=== PATIENT | male | born 1965 | race Caucasian/White ===

== ENCOUNTER 2018-02-21 07:14 | Inpatient (IN) | payer OTHER, SELFPAY ==
[2018-02-21] VITALS (11 sets, daily range): BP systolic 109–126; BP diastolic 51–72; PULSE 53–60; RESP 11–18; TEMP 36.3–37; O2SAT 97–100; BMI 23.7; BMI 23.6
[2018-02-21] MEDS: 0.9% Normal Saline 1,000 ML 1000 ML IV (07:41)
[2018-02-21] MEDS: Ondansetron 4 MG/2 ML Vial IV (07:41)
[2018-02-21] MEDS: Morphine 4 MG/ML Syringe IV (07:41)
--- NOTE | 2018-02-21 07:43 | ED.VISSUMM ---
- ER Visit Summary Date of Service: 02/21/18 Chief Complaint: Right flank pain History of Present Illness: The patient is a 52 M presenting with right flank pain. Patient states this started yesterday and gradually worsened through the night. He has pain in his right flank that radiates to his right shoulder. He tried Tylenol at home with no improvement. He has pain with deep inspiration and associated nausea. He denies chest pain or shortness of breath. Denies abdominal pain. Denies urinary complaints. Denies PE/DVT risk factors. Denies injury. Physical Examination: Vitals are stable. Patient is afebrile. Alert no acute distress. HEENT exam is unremarkable. Neck is supple. Lungs are clear and equal bilaterally. Heart is regular rate and rhythm. Abdomen is soft nontender nondistended. No guarding or rebound. Back: Right CVA tenderness Extremities are unremarkable. Skin is warm and dry. No focal neurologic deficit. Remainder of exam is unremarkable. Emergency Department Course and Treatment: Patient is given morphine, Zofran IV. EKG is sinus bradycardia rate of 53. CBC is normal except for white count 11.1. Chemistries unremarkable. Troponin is negative. Urinalysis unremarkable. CTA chest, abdomen pelvis was obtained and shows multiple intraluminal filling defects in the right lower lobe pulmonary arterial branches and smaller intraluminal filling defects seen in the left upper lobe pulmonary arterial branches. Right basilar infiltrate and small right pleural effusion. He was given Lovenox. Discussed with Dr. Cruz for admission. Disposition: Admission Impression: Multiple PE This note was generated with [employer] dictation software. It may contain incorrect words, spelling, and punctuation that were not noted in review of the chart prior to signing ED Disposition - Plan for ED Patient: Chief Complaint: Shortness of Breath Referrals: Connie Black MD [STAFF PHYSICIAN] -
[2018-02-21 08:01] LABS: Absolute Lymphocyte Count 1.77 X10^3/ul (0.83-4.51); Absolute Neutrophil Count 8.4 X10^3/uL (2.0-7.7); Basophil# 0.02 X10^3/uL; Basophil% 0.2 % (0-1); Eosinophil# 0.08 X10^3/uL; Eosinophils% 0.7 % (0-5); Hematocrit 38.4 % (40-54); Hemoglobin 12.6 g/dl (13.0-16.5); Lymphocyte # 1.77 X10^3/ul (4.0); Lymphocyte % 15.9 % (19-41); Mean Corp Hgb Conc 32.8 g/gl (32-36); Mean Corpuscular Hgb 30.5 pg (27.0-32.0); Mean Platelet Vol. 9.5 fl (6.2-12.0); Monocyte# 0.87 X10^3/uL; Monocyte% 7.8 % (0-10); Neutrophil # 8.35 X10^3/uL (2.7-7.7); Neutrophil % 75.3 % (47-70); POSITIVE COUNT NO; POSITIVE DIFFERENTIAL NO; POSITIVE MORPHOLOGY NO; Platelet Count 215 K/mm3 (150-450); RBC Distribution Width CV 12.2 % (11.6-14.6); RBC Distribution Width SD 41.6 fl (35.1-43.9); Red Blood Count 4.13 M/mm3 (4.6-6.2); White Blood Count 11.1 K/mm3 (4.4-11.0)
[2018-02-21 08:15] LABS: Anion Gap 9 (5-15); BUN 13 mg/dL (7-18); BUN/Creat Ratio 13.5 RATIO (10-20); Calcium,Total 8.8 mg/dL (8.5-10.1); Chloride 104 mmol/L (98-107); Creatinine, Serum 0.96 mg/dL (0.70-1.30); EST Glomerular Filtration Rate 86 mL/min (>60); Est Glom Filt Rate - Afr Amer 104 mL/min (>60); Estimated Creatinine Clearance 99.41 ml/min; Glucose 111 mg/dL (74-106); Potassium 4.1 mmol/L (3.5-5.1); Sodium Level 143 mmol/L (136-145)
[2018-02-21 09:24] LABS: Bacteria 0 SEEN /hpf (None Seen); Mucous, Urine 0 SEEN /hpf (<or=2+); Red Blood Cells-Urine 0 SEEN /hpf (0-5); Squamous Epithelial Cells - UA 0 SEEN /hpf (0-5); White Blood Cells 0 SEEN /hpf (0-5)
[2018-02-21 09:27] LABS: Color, Urine Yellow (Yellow); Glucose, Dipstick Normal (Normal); Ketone-Dipstick Negative (Negative); Leukocyte Esterase-Dipstick Negative /ul (Negative); Nitrite-Dipstick Negative (Negative); Occult Blood-Urine Negative /ul (Negative); Protein-Dipstick Negative (Negative); Urine Bilirubin Dipstick Negative (Negative); Urine Clarity Clear (Clear); Urine Urobilinogen Normal (Normal)
--- NOTE | 2018-02-21 10:29 | NURSING ---
[facility] notified patient may transfer to PCU.
[2018-02-21] MEDS: Enoxaparin 80 MG/0.8 ML Syringe SC ×2 (10:35→22:33)
--- NOTE | 2018-02-21 10:45 | PCM.HP.STD ---
Problem List (1) Acute pulmonary embolus Status: Acute Qualifiers: Acute cor pulmonale presence: without acute cor pulmonale (2) Pulmonary infarct Status: Acute History of Present Illness Date of Admission: 02/21/18 Chief Complaint: Right-sided chest pain The patient is a 52 year old M in relatively good health with no chronic medical problems who presents with right-sided chest pain. Patient symptoms started a day prior to coming in the evening. Patient describes the pain as dull ache which worsened as time progressed. He apparently could not lay on his right side in view of the intensity of the pain patient also reports having taken difficulty with breathing upon taking a deep breath.. In view of the persistent nature of his symptoms patient elected to present to the emergency department where imaging studies obtained demonstrated Multiple intraluminal filling defects in the right lower lobe pulmonary arterial branches and smaller intraluminal filling defects seen in the left upper lobe pulmonary arterial branches. Right basilar infiltrate and small right pleural effusion. Patient was started on Lovenox admitted to a monitored bed for further management Past Medical History Allergies No Known Allergies Allergy (Verified 02/21/18 07:17) Home Medications: Ambulatory Orders Medication Instructions Recorded NK [NK] 02/21/18 Smoking Status: Never smoker - *Family History Maternal History Items: Cancer - Mother of breast cancer with metastases to the bone Paternal History Items: COPD Review of Systems Constitutional: Denies: Anorexia, Chills, Fever, Night Sweats, Weight Change HEENT: Denies: Head Aches, Sinus Congestion, Sinus Drainage Cardiovascular: Reports: Chest Pain. Denies: Orthopnea, Palpitations Respiratory: Reports: Pleuritic Pain, Shortness of Breath Gastrointestinal: Denies: Abdominal Pain, Hematemesis, Hematochezia, Nausea, Melena, Vomiting Genitourinary: Denies: Dysuria, Frequency, Hematuria, Urgency Musculoskeletal: Denies: Joint Pain, Joint Tenderness Skin: Denies: Rash Neurological: Denies: Focal weakness, Numbness, Tingling Psychiatric: Denies: Homicidal Ideations, Suicidal Ideations Hematologic/ Lymphatic: Denies: Easy Bruising, Easy Bleeding VTE Information - Inpt Only VTE Present on Admission: Yes Patient Problems: Active and Suspected Problems Acute pulmonary embolus (Acute) Pulmonary infarct (Acute) Objective: GENERAL: Patient appears to be in some discomfort HEENT: Clear conjunctiva, moist oral mucosa NECK; supple, normal thyroid, no distended JVD. CHEST: Diminished to auscultation bilaterally, HEART: Regular S1 S2, no audible murmurs ABDOMEN: soft, non-tender, normoactive bowel sounds, RECTAL: deferred EXTREMITIES: No edema, no clubbing, no cyanosis. K 12 PRINCIPAL: Awake; no lateralizing signs. SKIN: No Rash - Physical Exam Vital Signs Temp Pulse Resp BP Pulse Ox 97.3 F L 55 L 11 L 119/69 99 02/21/18 07:15 02/21/18 10:31 02/21/18 10:31 02/21/18 10:31 02/21/18 10:31 Oxygen Delivery Method Room Air Weight: 81.7 kg Body Mass Index (BMI) 23.7 Laboratory Tests Past 24 Hrs 02/21/18 02/21/18 02/21/18 07:50 07:50 09:10 WBC 11.1 H RBC 4.13 L Hgb 12.6 L Hct 38.4 L MCV 93.0 MCH 30.5 MCHC 32.8 RDW 12.2 RDW Differential 41.6 Plt Count 215 MPV 9.5 Immature Gran % (Auto) 0.100 Neut % (Auto) 75.3 H Lymph % (Auto) 15.9 L Nelson % (Auto) 7.8 Eos % (Auto) 0.7 Baso % (Auto) 0.2 Absolute Neuts (auto) 8.4 H Absolute Lymphs (auto) 1.77 Total Counted Not Reportable Sodium 143 Potassium 4.1 Chloride 104 Carbon Dioxide 30.0 Anion Gap 9 BUN 13 Creatinine 0.96 Estim Creat Clear Calc 99.41 Est GFR (MDRD) Af Amer 104 Est GFR (MDRD) Non-Af 86 BUN/Creatinine Ratio 13.5 Glucose 111 H Calcium 8.8 Troponin I < 0.015 Urine Color Yellow Urine Clarity Clear Urine pH 8.0 Ur Specific [place] 1.010 Urine Protein Negative Urine Glucose (UA) Normal Urine Ketones Negative Urine Occult Blood Negative Urine Nitrite Negative Urine Bilirubin Negative Urine Urobilinogen Normal Ur Leukocyte Esterase Negative Urine RBC 0 SEEN Urine WBC 0 SEEN Ur Squamous Epith Cells 0 SEEN Urine Bacteria 0 SEEN Urine Mucus 0 SEEN Assessment/Plan All Active Problems Acute pulmonary embolus (Acute) Pulmonary infarct (Acute) Patient is a 52-year-old gentleman presented with right-sided pleuritic chest pain found to have pulmonary embolism on CT 1. Acute unprovoked pulmonary embolism patient has been admitted to a monitored bed was started on Lovenox, supplemental oxygen pain medications and echo ordered for subsequent evaluation. With the patient's PE being unprovoked did discuss with patient regarding treatment which has to continue indefinitely. I did discuss with the patient did be not to pursue hypercoagulable workup since management would not be altered 2. Acute pulmonary infarct secondary to patient's pulmonary embolism management as discussed above Code Visit Inpatient E&M: 16784 Init Hosp L2 OBSV E&M: 96877 Initial observation care L3
[2018-02-21 12:13] LABS: BNP,B-Type NATRIURETIC PEPTIDE 27.1 pg/mL (0-100)
[2018-02-21] MEDS: oxyCODONE 5 MG Tablet PO ×3 (14:01→22:32)
--- NOTE | 2018-02-21 14:28 | CASEMGMT ---
Face to Face with patient for initial transition planning/care coordination assessment. JUSTICE THORNTON introduced self and role at [facility], pt voices understanding and consents to assessment at this time. Pt is sitting up in bed in no distress at this time. Pt is A/O x4 at this time and answers all questions appropriately at this time. Care providers, pharmacy, and demographics verified. See attached link. Pt voices no further concerns/needs at this time. Advised pt to ask for CM if any further questions/concerns/needs arise, voices understanding. CM to follow for anti-coagulation needs. PLAN: [place] JUSTICE THORNTON
[2018-02-21] MEDS: Acetaminophen 325 MG Tablet 650 MG PO (16:42)
[2018-02-22] VITALS (12 sets, daily range): BP systolic 111–131; BP diastolic 55–63; PULSE 60–72; RESP 16; TEMP 37.1–38.1; O2SAT 95–99
[2018-02-22] MEDS: Morphine 2 MG/ML Syringe IV ×2 (00:44→06:52)
[2018-02-22] MEDS: Zolpidem Tartrate 5 MG Tablet PO ×2 (00:45→22:00)
[2018-02-22] MEDS: 0.9% NaCl Peripheral Flush Adult/Peds IV ×3 (00:45→22:02)
[2018-02-22 06:39] LABS: Anion Gap 6 (5-15); BUN 9 mg/dL (7-18); Calcium,Total 8.3 mg/dL (8.5-10.1); Chloride 105 mmol/L (98-107); Creatinine, Serum 0.82 mg/dL (0.70-1.30); EST Glomerular Filtration Rate 104 mL/min (>60); Est Glom Filt Rate - Afr Amer 126 mL/min (>60); Estimated Creatinine Clearance 116.39 ml/min; Glucose 101 mg/dL (74-106); Potassium 3.9 mmol/L (3.5-5.1); Sodium Level 140 mmol/L (136-145)
--- NOTE | 2018-02-22 08:30 | PCM.PN.HOSP ---
Patient Problems: Active and Suspected Problems Acute pulmonary embolus (Acute) Pulmonary infarct (Acute) Subjective: Patient seen still complains of significant right-sided pleuritic chest pain radiating to his right shoulder dose of Toradol was given. Echo obtained the day prior demonstrates the possibility of blood clots in patient's IVC Objective: GENERAL: Patient appears to be in some discomfort HEENT: Clear conjunctiva, moist oral mucosa NECK; supple, normal thyroid, no distended JVD. CHEST: Diminished to auscultation bilaterally, HEART: Regular S1 S2, no audible murmurs ABDOMEN: soft, non-tender, normoactive bowel sounds, RECTAL: deferred EXTREMITIES: No edema, no clubbing, no cyanosis. PARISH WORKER: Awake; no lateralizing signs. SKIN: No Rash Vitals/I&O's: Vital Signs Temp Pulse Resp BP Pulse Ox 99.0 F 65 16 111/59 L 95 02/22/18 06:48 02/22/18 07:23 02/22/18 06:48 02/22/18 06:48 02/22/18 07:40 Oxygen Delivery Method Room Air Weight: 81.3 kg Body Mass Index (BMI) 23.6 Intake and Output for Last 24 Hours 02/20/18 02/21/18 02/22/18 23:59 23:59 23:59 Intake Total 240 / 240 360 / 360 Balance 240 / 240 360 / 360 Laboratory Results 02/21/18 12:00: Troponin I < 0.015 02/21/18 15:00: Troponin I < 0.015 02/22/18 06:00: Sodium 140, Potassium 3.9, Chloride 105, Carbon Dioxide 29.0, Anion Gap 6, BUN 9, Creatinine 0.82, Estim Creat Clear Calc 116.39, Est GFR (MDRD) Af Amer 126, Est GFR (MDRD) Non-Af 104, BUN/Creatinine Ratio 11.0, Glucose 101, Calcium 8.3 L Current Medications Acetaminophen (Tylenol) 650 mg PO Q6H PRN PRN PRN Reason: Mild Pain (scale 0-3)/T>100.7 Last Admin: 02/21/18 16:42 Dose: 650 mg Al Hydroxide/Mg Hydroxide (Mylanta Ii) 30 ml PO Q6H PRN PRN PRN Reason: Gastric Burning Bisacodyl (Dulcolax) 10 mg PO DAILY PRN PRN PRN Reason: Constipation Docusate Sodium (Colace) 200 mg PO BID PRN PRN PRN Reason: Constipation Enoxaparin Sodium (Lovenox) 80 mg 1 mg/kg (80 mg) SC Q12 EVER Last Admin: 02/21/18 22:33 Dose: 80 mg Ketorolac Tromethamine (Toradol) 15 mg IV X1 ONE Stop: 02/22/18 08:29 Magnesium Hydroxide (Milk Of Magnesia) 30 ml PO DAILY PRN PRN Reason: Constipation Morphine Sulfate () 2 - 4 mg IV Q3H PRN PRN PRN Reason: Severe Pain (pain scale 6-10) Last Admin: 02/22/18 06:52 Dose: 2 mg Morphine Sulfate () 2 - 4 mg IV Q3H PRN PRN PRN Reason: Severe Pain (pain scale 6-10) Ondansetron HCl (Zofran) 4 mg IV Q8H PRN PRN PRN Reason: Nausea Oxycodone HCl (Oxyir) 5 mg PO Q4H PRN PRN PRN Reason: Moderate Pain (pain scale 4-5) Last Admin: 02/21/18 22:32 Dose: 5 mg Sodium Chloride () 5 - 30 ml IV UD PRN PRN Reason: SALINE FLUSH Last Admin: 02/22/18 00:45 Dose: 10 ml Zolpidem Tartrate (Ambien (Generic)) 5 mg PO QHS PRN PRN PRN Reason: INSOMNIA Last Admin: 02/22/18 00:45 Dose: 5 mg Medical Necessity - Tobacco Use Smoking Status: Never smoker Assessment/Plan All Active Problems Acute pulmonary embolus (Acute) Pulmonary infarct (Acute) Patient is a 52-year-old gentleman presented with right-sided pleuritic chest pain found to have pulmonary embolism on CT 1. Acute unprovoked pulmonary embolism patient has been admitted to a monitored bed was started on Lovenox, supplemental oxygen pain medications and echo ordered for subsequent evaluation. With the patient's PE being unprovoked did discuss with patient regarding treatment which has to continue indefinitely. I did discuss with the patient the decision not to pursue hypercoagulable workup since management would not be altered. Echo obtained on 02/21/2018 demonstrates the possibility of blood clots in patient's IVC RVSP was 28 mmHg 2. Acute pulmonary infarct secondary to patient's pulmonary embolism management as discussed above Clinical Impression(s) from Imaging Studies Abdomen/Pelvis CT 02/21/18 07:30 IMPRESSION: Focal right lower lobe infiltrate with small right pleural effusion. Basilar atelectasis at the left lung base. Electronically Signed: Von Goodrich MD at 9:31 EDT Tel [phone], Service support , Chest CTA 02/21/18 07:30 IMPRESSION: Multiple intraluminal filling defects in the right lower lobe pulmonary arterial branches and smaller intraluminal filling defects seen in the left upper lobe pulmonary arterial branches. Right basilar infiltrate and small right pleural effusion. Electronically Signed: Von Goodrich MD at 9:33 EDT Tel [phone], Service support , Active Medications Acetaminophen (Tylenol) 650 mg PO Q6H PRN PRN PRN Reason: Mild Pain (scale 0-3)/T>100.7 Last Admin: 02/21/18 16:42 Dose: 650 mg Al Hydroxide/Mg Hydroxide (Mylanta Ii) 30 ml PO Q6H PRN PRN PRN Reason: Gastric Burning Bisacodyl (Dulcolax) 10 mg PO DAILY PRN PRN PRN Reason: Constipation Docusate Sodium (Colace) 200 mg PO BID PRN PRN PRN Reason: Constipation Enoxaparin Sodium (Lovenox) 80 mg 1 mg/kg (80 mg) SC Q12 EVER Last Admin: 02/21/18 22:33 Dose: 80 mg Ketorolac Tromethamine (Toradol) 15 mg IV X1 ONE Stop: 02/22/18 08:29 Magnesium Hydroxide (Milk Of Magnesia) 30 ml PO DAILY PRN PRN Reason: Constipation Morphine Sulfate () 2 - 4 mg IV Q3H PRN PRN PRN Reason: Severe Pain (pain scale 6-10) Last Admin: 02/22/18 06:52 Dose: 2 mg Morphine Sulfate () 2 - 4 mg IV Q3H PRN PRN PRN Reason: Severe Pain (pain scale 6-10) Ondansetron HCl (Zofran) 4 mg IV Q8H PRN PRN PRN Reason: Nausea Oxycodone HCl (Oxyir) 5 mg PO Q4H PRN PRN PRN Reason: Moderate Pain (pain scale 4-5) Last Admin: 02/21/18 22:32 Dose: 5 mg Sodium Chloride () 5 - 30 ml IV UD PRN PRN Reason: SALINE FLUSH Last Admin: 02/22/18 00:45 Dose: 10 ml Zolpidem Tartrate (Ambien (Generic)) 5 mg PO QHS PRN PRN PRN Reason: INSOMNIA Last Admin: 02/22/18 00:45 Dose: 5 mg Code Visit OBSV E&M: 45753 Subsequent observation care L3
[2018-02-22] MEDS: Ketorolac 15 MG/ML Vial IV (08:52)
[2018-02-22] MEDS: Enoxaparin 80 MG/0.8 ML Syringe SC ×2 (10:54→22:01)
[2018-02-22] MEDS: Acetaminophen 325 MG Tablet 650 MG PO (18:01)
[2018-02-22] MEDS: Ketorolac 10 MG Tablet PO (22:00)
[2018-02-23 03:00] VITALS: PULSE 62
[2018-02-23 03:40] VITALS: BP 118/59; PULSE 65; RESP 16; TEMP 37.2; O2SAT 96
--- NOTE | 2018-02-23 05:55 | NURSING ---
All charting completed by SN Heena reviewed by this RN. This RN agrees with documentation - 02/23
[2018-02-23 06:33] LABS: Hematocrit 34.3 % (40-54); Hemoglobin 11.2 g/dl (13.0-16.5); Mean Corp Hgb Conc 32.7 g/gl (32-36); Mean Corpuscular Hgb 30.4 pg (27.0-32.0); Mean Platelet Vol. 9.1 fl (6.2-12.0); Platelet Count 200 K/mm3 (150-450); RBC Distribution Width CV 12.3 % (11.6-14.6); RBC Distribution Width SD 41.7 fl (35.1-43.9); Red Blood Count 3.69 M/mm3 (4.6-6.2); White Blood Count 7.1 K/mm3 (4.4-11.0)
[2018-02-23 06:34] LABS: Scan Indicated on CBC? Y/N NO
[2018-02-23 06:51] LABS: Anion Gap 4 (5-15); BUN 10 mg/dL (7-18); BUN/Creat Ratio 12.4 RATIO (10-20); Calcium,Total 8.3 mg/dL (8.5-10.1); Chloride 105 mmol/L (98-107); Creatinine, Serum 0.81 mg/dL (0.70-1.30); EST Glomerular Filtration Rate 106 mL/min (>60); Est Glom Filt Rate - Afr Amer 128 mL/min (>60); Estimated Creatinine Clearance 117.82 ml/min; Glucose 101 mg/dL (74-106); Magnesium 2.2 mg/dL (1.6-2.6); Potassium 3.9 mmol/L (3.5-5.1); Sodium Level 139 mmol/L (136-145)
[2018-02-23 06:56] VITALS: PULSE 61
[2018-02-23 09:40] VITALS: BP 121/74; PULSE 65; RESP 16; TEMP 36.7; O2SAT 97
--- NOTE | 2018-02-23 09:43 | PCM.DC ---
- Discharge Diagnoses Current Active Problems: Current Active and Chronic Problems Acute pulmonary embolus (Acute) Pulmonary infarct (Acute) You will use the following diet at home:: No restrictions Discharge Activity: May Not Drive Allergies/Adverse Reactions: Allergies No Known Allergies Allergy (Verified 02/21/18 07:17) Medications to take at Discharge Oxycodone [Oxyir] 5 mg PO Q4H PRN PRN 5 Days #14 tab 02/23/18 Pantoprazole Sodium [Protonix] 40 mg PO DAILY #30 tab 02/23/18 Rivaroxaban [Xarelto] 1 tab PO UD #51 tab 02/23/18 The following prescriptions were given: Oxycodone [Oxyir] 5 mg PO Q4H PRN PRN 5 Days #14 tab PRN Reason: Moderate Pain (pain scale 4-5) Pantoprazole Sodium [Protonix] 40 mg PO DAILY #30 tab Rivaroxaban [Xarelto] 1 tab PO UD #51 tab Primary Care Physician: Connie Black MD [STAFF PHYSICIAN] - Test Results: Test results from this visit will be discussed in further detail at your follow-up appointment, if applicable. Proposed Discharge Date: 02/23/18
--- NOTE | 2018-02-23 09:44 | PCM.DC.SUM ---
Discharge Date and Diagnosis - Problem List Patient Problems: Active and Suspected Problems Acute pulmonary embolus (Acute) Pulmonary infarct (Acute) Date of Admission: 02/21/18 Date of Discharge: 02/23/18 - Primary Discharge Diagnosis Active and Suspected Problems Acute pulmonary embolus (Acute) Pulmonary infarct (Acute) Hospital Course and Treatment Summary of Care Provided: Patient is a 52-year-old gentleman presented with right-sided pleuritic chest pain found to have pulmonary embolism on CT 1. Acute unprovoked pulmonary embolism patient has been admitted to a monitored bed was started on Lovenox, supplemental oxygen pain medications and echo ordered for subsequent evaluation. With the patient's PE being unprovoked did discuss with patient regarding treatment which has to continue indefinitely. I did discuss with the patient the decision not to pursue hypercoagulable workup since management would not be altered. Echo obtained on 02/21/2018 demonstrates the possibility of blood clots in patient's IVC RVSP was 28 mmHg. Patient was discharged home on Eliquis and instructed to follow-up with his primary care physician Dr. Case for subsequent care 2. Acute pulmonary infarct secondary to patient's pulmonary embolism management as discussed above Discharge Diet: No Restrictions Discharge Activity: May Not Drive Home Medications: Medications to take at Discharge Apixaban [Eliquis] 5 mg PO BID #60 tab 02/23/18 Apixaban [Eliquis] 10 mg PO BID #28 tab 02/23/18 Oxycodone [Oxyir] 5 mg PO Q4H PRN PRN 5 Days #14 tablet 02/23/18 Pantoprazole Sodium [Protonix] 40 mg PO DAILY #30 tab 02/23/18 Following Prescrptions Were Given to Patient: Apixaban [Eliquis] 10 mg PO BID #28 tab Apixaban [Eliquis] 5 mg PO BID #60 tab Oxycodone [Oxyir] 5 mg PO Q4H PRN PRN 5 Days #14 tablet PRN Reason: Moderate Pain (pain scale 4-5) Pantoprazole Sodium [Protonix] 40 mg PO DAILY #30 tab Primary Care Physician: Connie Black MD [STAFF PHYSICIAN] - Disposition: Home Minutes spent on discharge:: 35 Patient Condition:: Stable Medical Necessity - Tobacco Use Smoking Status: Never smoker Meaningful Use Info Meaningful Use Diagnoses (Choose all that apply): VTE - VTE Anticoag overlap given w/in hospital stay or rx'd at dc?: No Pt receive overlap for 5 days?: No Reason overlap not ordered, prescribed, or given for 5 days: Treatment Not Indicated Code Visit Inpatient E&M: 04771 Disch Hosp
--- NOTE | 2018-02-23 10:32 | PCM.DC ---
- Discharge Diagnoses Current Active Problems: Current Active and Chronic Problems Acute pulmonary embolus (Acute) Pulmonary infarct (Acute) Discharge Activity: May Not Drive Allergies/Adverse Reactions: Allergies No Known Allergies Allergy (Verified 02/21/18 07:17) Medications to take at Discharge Apixaban [Eliquis] 5 mg PO BID #60 tab 02/23/18 Apixaban [Eliquis] 10 mg PO BID #28 tab 02/23/18 Oxycodone [Oxyir] 5 mg PO Q4H PRN PRN 5 Days #14 tablet 02/23/18 Pantoprazole Sodium [Protonix] 40 mg PO DAILY #30 tab 02/23/18 The following prescriptions were given: Apixaban [Eliquis] 10 mg PO BID #28 tab Apixaban [Eliquis] 5 mg PO BID #60 tab Oxycodone [Oxyir] 5 mg PO Q4H PRN PRN 5 Days #14 tablet PRN Reason: Moderate Pain (pain scale 4-5) Pantoprazole Sodium [Protonix] 40 mg PO DAILY #30 tab Primary Care Physician: Connie Black MD [STAFF PHYSICIAN] - Test Results: Test results from this visit will be discussed in further detail at your follow-up appointment, if applicable. Proposed Discharge Date: 02/23/18
[2018-02-23] MEDS: Enoxaparin 80 MG/0.8 ML Syringe SC (10:45)
[2018-02-23 11:10] VITALS: PULSE 69
--- NOTE | 2018-02-23 11:29 | CASEMGMT ---
Per Dr. Cruz, pt to be sent home on [employer] and med e-scribed to [facility] previously. Call to [facility] and per tech, pt's co-pay for 1st script is $125 and they are unable to run 2nd script until 1st is filled/paid for. Pt updated at this time and provided $10 co-pay card with instructions, voices understanding. Pt voices no further questions/concerns/needs at this time. Awaiting dispo. Dewey RENDON CM
[2018-02-23 12:02] VITALS: O2SAT 96
== END 2018-02-23 12:17 | disposition home or self-care (01) | DRG 176 ==
LOC: ED 08:11 → PCU 10:45
PROVIDERS: Admitting Provider Internal Medicine; Emergency Provider Emergency Medicine; Family Provider Internal Medicine; PCP Internal Medicine; Visit Provider Internal Medicine
DX: I26.99 Other pulmonary embolism without acute cor pulmonale (principal)
CPT/HCPCS: 36415; 71275; 74176; 80048; 81001; 83735; 83880; 84484; 85025; 85027; 93005; 93306; 99251; 99285; J7030; Q9967; A4216; G0463; J2405

== ENCOUNTER 2018-08-10 14:37 | Emergency (ER) | payer OTHER, SELFPAY ==
[2018-08-10 14:39] VITALS: BP 147/73; PULSE 76; RESP 16; TEMP 36.4; O2SAT 99; BMI 23.7
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
[2018-08-10 16:10] VITALS: RESP 18
== END 2018-08-10 16:10 | disposition home or self-care (01) ==
LOC: ED 15:41
PROVIDERS: Emergency Provider Emergency Medicine; Family Provider Internal Medicine; PCP Internal Medicine
DX: S60.221A Contusion of right hand, initial encounter (principal); V89.2XXA Person injured in unspecified motor-vehicle accident, traffic, initial encounter; Y93.89 Activity, other specified; Y92.9 Unspecified place or not applicable; K21.9 Gastro-esophageal reflux disease without esophagitis
CPT/HCPCS: 73130; 99282

== ENCOUNTER 2019-05-07 06:00 | Emergency (ER) | payer OTHER, SELFPAY ==
[2019-05-07 06:00] VITALS: BP 127/61; PULSE 70; RESP 17; TEMP 37; O2SAT 96; BMI 24.2
--- NOTE | 2019-05-07 06:22 | CT_ITS ---
STUDY: CT ABDOMEN AND PELVIS WITH CONTRAST REASON FOR EXAM: Male, 53 years old. 2 day history of fever and bloody stool. RADIATION DOSAGE (If Supplied By Facility): CTDIvol = ( 12.71 ) mGy, DLP = ( 767.09 ) mGycm TECHNIQUE: Transaxial images were obtained from the dome of the diaphragm to the symphysis pubis with oral contrast. IV/Oral Isovue 300 100 was administered. Sagittal and coronal images were reconstructed. Individualized dose optimization techniques were used for this CT. COMPARISON: Comparison is made with prior study dated February 21, 2018. FINDINGS: Minimal degree of dependent bibasilar atelectasis. The visualized portions of the heart are within normal limits. 5 mm cyst in the anterior peripheral aspect of the right lobe of the liver. A similar appearing 5 mm cyst is seen in the left lobe of the liver. Normal gallbladder and extrahepatic biliary system. Normal spleen. Normal pancreas. Normal bilateral adrenal glands. 2.8 cm cyst in the anterior superior aspect of the right kidney. This is unchanged. Normal left kidney. There is a small hiatal hernia. Normal small intestine. There are scattered colonic diverticula consistent with diverticulosis. Moderate amount of fecal material is seen in the colon. The appendix is visualized and appears normal. Normal abdominal aorta. Normal inferior vena cava. Normal retroperitoneum. Normal urinary bladder. Minimal amount of free fluid is seen in the posterior right pelvis. Normal abdominal wall. Disc space narrowing and disc degeneration at the L5-S1 level. Mild degree of disc space narrowing at the L4-L5 level. CT/Abdomen/Pelvis WITH Contrast IMPRESSION: Moderate amount of fecal material is seen throughout the colon. Scattered sigmoid diverticula. Small amount of free fluid in the posterior right pelvis. Stable right renal cyst and small hepatic cysts. Electronically Signed: Von Goodrich, at 8:31 EDT , Service support ,
--- NOTE | 2019-05-07 06:23 | RAD_ITS ---
STUDY: X-RAY CHEST REASON FOR EXAM: Male, 53 years old. Fever, weakness and nausea. Body aches. TECHNIQUE: PA and lateral views of the chest. COMPARISON: None. FINDINGS: EKG electrodes are seen. The lungs are clear and expanded. There is no demonstrated pleural abnormality. Normal size heart. Normal mediastinum and chad. Normal visualized pulmonary arteries. Normal visualized aortic arch and descending thoracic aorta. Normal visualized thoracic spine. Normal visualized ribs, clavicles, and shoulders. There is no demonstrated abnormality of the visualized soft tissue structures of the upper abdomen. RAD/Chest PA and Lateral IMPRESSION: Normal x-ray examination of the chest. Electronically Signed: Von Goodrich, at 8:27 EDT , Service support ,
--- NOTE | 2019-05-07 06:23 | ED.VIS.GEN ---
History of Present Illness Chief Complaint: General Illness Narrative: Patient is a 53-year-old male who presents with multiple complaints. He initially became ill on Tuesday, 2 days ago. He reports generalized malaise, fever, headache and chills. Yesterday he had 2 episodes of bloody stool. Initially this was some pink discoloration however than in the evening he had another episode with darker blood and small clots as well as dark-colored stool. He has not had a bowel movement since 5:00 PM yesterday, about 13 to 14 hours before presentation here. However he woke up this morning with body aches across his back and arms. He denies any abdominal pain. He also felt lightheaded but did not lose consciousness. He felt slightly nauseated. No vomiting. No diarrhea. He does report some dysuria for the past 2 days no frequency or urgency. He has a prior history of unprovoked pulmonary embolism of unclear cause. He is no longer on anticoagulation. Past Medical History - Allergies and Home Meds Allergies/Adverse Reactions: Allergies No Known Allergies Allergy (Verified 05/07/19 06:06) Primary Care Physician: Giovanni Case MD [Primary Care Provider] - Past Medical History: None Smoking Status: Never smoker - Family History Maternal Family History: Reports: Cancer - Mother of breast cancer with metastases to the bone Paternal Family History: Reports: COPD Review of Systems All systems negative except as indicated General: Reports: Chills, Fever, Malaise ENT: Reports: Rhinorrhea Cardiovascular: Denies: Chest pain Respiratory: Denies: Dyspnea, Cough Gastrointestinal: Reports: Nausea, Melena, Hematochezia. Denies: Abdominal pain, Vomiting, Diarrhea Musculoskeletal: Reports: Myalgias, Arthralgias Neurological: Reports: Headache Physical Exam Vital Signs/Narrative: Vital Signs Temp Pulse Resp BP Pulse Ox 05/07/19 06:00 98.6 F 70 17 127/61 H 96 Inital Vital Signs reviewed: Yes General: Well nourished, Well developed Head: Normocephalic, Atraumatic Eyes: Perrl, EOMI ENT: Moist mucous membranes Neck: Supple Cardiovascular: Regular rate, Regular rhythm Respiratory: No distress, CTA bilaterally Abdomen: Soft, Nontender, Nondistended, Normal bowel sounds Rectal: Nontender, - - No gross blood on digital rectal exam Skin: Normal color Neurological: Alert Psychological: Normal affect Diagnostic/Tx/Re-eval 05/07/19 06:22 Abdomen/Pelvis WITH Contrast [CT] Stat 05/07/19 06:23 Chest PA and Lateral [RAD] Stat 05/07/19 06:35 Mucosa - Nose Influenza Types A,B Direct FA (KATIE) - Final 05/07/19 06:25 Stool Stool Occult Blood (KATIE) - Final Laboratory Results 05/07/19 05/07/19 05/07/19 06:25 06:25 06:25 WBC 4.4 RBC 3.86 L Hgb 11.9 L Hct 35.4 L MCV 91.7 MCH 30.8 MCHC 33.6 RDW Std Deviation 41.0 RDW Coeff of Nate 12.1 Plt Count 192 MPV 9.5 Immature Gran % (Auto) 0.200 Neut % (Auto) 65.9 Lymph % (Auto) 23.2 [place] % (Auto) 10.7 H Eos % (Auto) 0.0 Baso % (Auto) 0.0 Absolute Neuts (auto) 2.9 Absolute Lymphs (auto) 1.02 Nucleated RBC % 0 PT 14.3 INR 1.1 Sodium 139 Potassium 3.9 Chloride 106 Carbon Dioxide 27.0 Anion Gap 6 BUN 16 Creatinine 0.99 Estim Creat Clear Calc 95.28 Est GFR (MDRD) Af Amer 101 Est GFR (MDRD) Non-Af 83 BUN/Creatinine Ratio 16.2 Glucose 111 H Calcium 8.1 L Total Bilirubin 0.40 AST 25 ALT 21 Alkaline Phosphatase 58 Total Protein 6.9 Albumin 3.3 Globulin 3.6 Albumin/Globulin Ratio 0.9 Urine Color Urine Clarity Urine pH Ur Specific [place] Urine Protein Urine Glucose (UA) Urine Ketones Urine Occult Blood Urine Nitrite Urine Bilirubin Urine Urobilinogen Ur Leukocyte Esterase Urine RBC Urine WBC Ur Squamous Epith Cells Urine Bacteria Urine Mucus 05/07/19 06:50 WBC RBC Hgb Hct MCV MCH MCHC RDW Std Deviation RDW Coeff of Nate Plt Count MPV Immature Gran % (Auto) Neut % (Auto) Lymph % (Auto) [place] % (Auto) Eos % (Auto) Baso % (Auto) Absolute Neuts (auto) Absolute Lymphs (auto) Nucleated RBC % PT INR Sodium Potassium Chloride Carbon Dioxide Anion Gap BUN Creatinine Estim Creat Clear Calc Est GFR (MDRD) Af Amer Est GFR (MDRD) Non-Af BUN/Creatinine Ratio Glucose Calcium Total Bilirubin AST ALT Alkaline Phosphatase Total Protein Albumin Globulin Albumin/Globulin Ratio Urine Color Yellow Urine Clarity Clear Urine pH 7.0 Ur Specific [place] 1.010 Urine Protein 15 H Urine Glucose (UA) Normal Urine Ketones Negative Urine Occult Blood 25 H Urine Nitrite Negative Urine Bilirubin Negative Urine Urobilinogen Normal Ur Leukocyte Esterase Negative Urine RBC 0-5 SEEN Urine WBC 0 SEEN Ur Squamous Epith Cells 0-5 SEEN Urine Bacteria RARE Urine Mucus 0 SEEN - Medical Decision Making Patient underwent the above work-up. In regards to his rectal bleeding his hemoglobin is stable no gross blood on digital rectal exam and Hemoccult is negative. He does not appear to be actively bleeding. The bleeding that he had yesterday appears to be stable. He was advised he can likely follow-up with this as an outpatient. I also have ordered a CT of his abdomen and pelvis given the blood in stool and fever to rule out process such as colitis. He also was complaining of some vague upper back discomfort. EKG chest x-ray troponin pending. If the remainder of his work-up is unremarkable I anticipate discharge. Patient has been signed out to the oncoming physician to follow-up on results and make final disposition. ED Disposition - Plan for ED Patient: Diagnosis: Hematochezia, Fever, Myalgia Referrals: Giovanni Case MD [Primary Care Provider] -
[2019-05-07] MEDS: 0.9% Normal Saline 1,000 ML 1000 ML IV (06:28)
[2019-05-07 06:42] LABS: Absolute Lymphocyte Count 1.02 X10^3/uL (0.83-4.51); Absolute Neutrophil Count 2.9 X10^3/uL (2.0-7.7); Hematocrit 35.4 % (40-54); Hemoglobin 11.9 g/dL (13.0-16.5); Lymphocyte # 1.02 X10^3/ul (4.0); Lymphocyte % 23.2 % (19-41); Mean Corp Hgb Conc 33.6 g/dL (32-36); Mean Corpuscular Hgb 30.8 pg (27.0-32.0); Mean Corpuscular Volume 91.7 fL (80-94); Mean Platelet Vol. 9.5 fl (6.2-12.0); Monocyte# 0.47 X10^3/uL; Monocyte% 10.7 % (0-10); NRBC Flagged by Analyzer 0 % (0-5); Neutrophil % 65.9 % (47-70); Platelet Count 192 K/mm3 (150-450); RBC Distribution Width CV 12.1 % (11.6-14.6); Red Blood Count 3.86 M/mm3 (4.6-6.2); White Blood Count 4.4 K/mm3 (4.4-11.0)
[2019-05-07 06:51] VITALS: BP 139/77; PULSE 76; RESP 17; O2SAT 97
[2019-05-07 06:57] LABS: International Normalized Ratio 1.1; Prothrombin Time (Protime)PT. 14.3 SECONDS (11.7-14.9)
[2019-05-07 07:00] LABS: ALB/GLOB Ratio 0.9 RATIO (0.9-2.4); AST(SGOT) 25 U/L (15-37); Alanine Aminotransfer ALT/SGPT 21 U/L (16-61); Albumin, Serum 3.3 g/dL (3.2-5.0); Alkaline Phosphatase 58 U/L (45-117); Anion Gap 6 (5-15); BUN 16 mg/dL (7-18); BUN/Creat Ratio 16.2 RATIO (10-20); Calcium,Total 8.1 mg/dL (8.5-10.1); Chloride 106 mmol/L (98-107); Creatinine, Serum 0.99 mg/dL (0.70-1.30); EST Glomerular Filtration Rate 83 mL/min (>60); Est Glom Filt Rate - Afr Amer 101 mL/min (>60); Estimated Creatinine Clearance 95.28 ml/min; Globulin 3.6 g/dL (2.2-4.2); Glucose 111 mg/dL (74-106); Potassium 3.9 mmol/L (3.5-5.1); Protein, Total 6.9 g/dL (6.4-8.2); Sodium Level 139 mmol/L (136-145)
[2019-05-07 07:02] LABS: Color, Urine Yellow (Yellow); Glucose, Dipstick Normal (Normal); Ketone-Dipstick Negative (Negative); Leukocyte Esterase-Dipstick Negative /ul (Negative); Mucous, Urine 0 SEEN /hpf (<or=2+); Nitrite-Dipstick Negative (Negative); Occult Blood-Urine 25 /ul (Negative); Protein-Dipstick 15 mg/dl (Negative); Urine Bilirubin Dipstick Negative (Negative); Urine Clarity Clear (Clear); Urine Urobilinogen Normal (Normal); White Blood Cells 0 SEEN /hpf (0-5)
[2019-05-07 07:09] LABS: Bacteria RARE /hpf (None Seen); Red Blood Cells-Urine 0-5 SEEN /hpf (0-5); Squamous Epithelial Cells - UA 0-5 SEEN /hpf (0-5)
--- NOTE | 2019-05-07 07:09 | EKG12_ITS ---
Test Reason : ILL Blood Pressure : / mmHG Vent. Rate : 068 BPM Atrial Rate : 068 BPM P-R Int : 168 ms QRS Dur : 084 ms QT Int : 394 ms P-R-T Axes : 077 070 057 degrees QTc Int : 418 ms Normal sinus rhythm Normal ECG Confirmed by EMIL HALL, THADDEUS ([id number]), website/blog editor ALIYA CHAVEZ ([id number]) on 05/08/2019 10:57:43 AM Referred By: ANNETTE Confirmed By:THADDEUS STEIN MD
[2019-05-07 08:28] VITALS: PULSE 63; RESP 12
--- NOTE | 2019-05-07 08:48 | ED.DEP ---
ED Disposition - Plan for ED Patient: Diagnosis: Hematochezia, Fever, Myalgia Instructions: Understanding Rectal Bleeding, Evaluating and Treating Rectal Bleeding Referrals: Giovanni Case MD [Primary Care Provider] -
[2019-05-07 08:55] VITALS: BP 135/80; PULSE 62; RESP 14
== END 2019-05-07 09:05 | disposition home or self-care (01) ==
LOC: ED 06:25
PROVIDERS: Emergency Provider Emergency Medicine; Family Provider Internal Medicine; PCP Internal Medicine
DX: K92.1 Melena (principal); R50.9 Fever, unspecified; M79.10 Myalgia, unspecified site; N28.1 Cyst of kidney, acquired; K76.89 Other specified diseases of liver; K57.30 Diverticulosis of large intestine without perforation or abscess without bleeding
CPT/HCPCS: 71046; 74177; 80053; 81001; 82274; 84484; 85025; 85610; 86850; 86900; 86901; 87804; 93005; 96360; 99284; Q9967; A4216

== ENCOUNTER → 2019-05-09 13:50 | Outpatient (CLI) | payer OTHER, SELFPAY ==
[2019-05-07 06:00] VITALS: BMI 24.2
[2019-05-09 14:04] LABS: CRP 7.46 mg/L (0.0-3.0)
[2019-05-09 14:10] LABS: Erythrocyte Sedimentation Rate 1 mm/hr (0-20)
== END ==
PROVIDERS: Family Provider Internal Medicine; PCP Internal Medicine; Referring Provider Family Medicine; Visit Provider Family Medicine
DX: K62.5 Hemorrhage of anus and rectum (principal); R42 Dizziness and giddiness
CPT/HCPCS: 85652; 86140

== ENCOUNTER → 2019-08-14 12:16 | Outpatient (CLI) | payer OTHER, SELFPAY ==
--- NOTE | 2019-08-13 | EGD_PTH ---
PATIENT: SONDRA FLORES LOC: [facility] U#:[id number] AGE/SX: 59/M ROOM: RE08/14/[address]: Dr. Kristian Hooper MD : 1965 BED: DIS: SPEC #: [id number] RECD: 08/14/19 12:04 STATUS: MARTHA REWing #: [id number] ALINE: 08/13/19 00:[address]: Kristian Hooper DEPT: SURGICAL PATHOLOGY RECD BY: Mario Godfrey ENTERED: 08/14/19 13:09 SP TYPE: EGD BIOPSY OTHR DR: Dr. Giovanni Case MD Tissues: Gastric mucous membrane Procedures: Surgery Specimen Level IV HEADER OPERATION: EGD PRE-OP DIAGNOSIS: R19.5 TISSUE SUBMITTED: Antral biopsy H/H MICROSCOPIC DIAGNOSIS Gastric antrum, biopsy: Chronic gastritis. See comment. AM:irish 08/15/19 COMMENT The results of immunohistochemistry for Helicobacter pylori will be reported separately ([id number]). MICROSCOPIC DESCRIPTION Slides are reviewed. GROSS DESCRIPTION Received in fixative is one container labeled with the patient's name and designated antral biopsy. The specimen consists of two irregular fragments of light morris soft tissue that in aggregate measure 1 x 0.3 x 0.1 cm. The specimen is totally submitted in one cassette. / SJ:rg 08/14/19 TC:3 CPT: 35278
--- NOTE | 2019-08-13 | IMM_PTH ---
PATIENT: SONDRA FLORES LOC: [facility] U#:[id number] AGE/SX: 59/M ROOM: RE08/14/[address]: Dr. Kristian Hooper MD : 1965 BED: DIS: SPEC #: [id number] RECD: 08/14/19 14:15 STATUS: MARTHA REQ #: [id number] ALINE: 08/13/19 00:[address]: Kristian Hooper DEPT: IMMUNOHISTOCHEMISTRY RECD BY: Michelle Guerrero ENTERED: 08/14/19 14:16 SP TYPE: IMMUNO OTHR DR: Dr. Giovanni Case MD Tissues: Stomach, NOS Procedures: H Pylori (initial) PHYSICIAN & INSTITUTION [place] [address] SPECIMEN INFORMATION: Tissue Source: Antral biopsy Clinical Info: R19.5 Specimen Number: [id number] CPT code: 63860 METHODOLOGY: Deparaffinized sections of prefer/formalin-fixed tissue or PAP/DQ stained slides are incubated with monoclonal/polyclonal antibodies/oligonucleotide probes. Localization is made via biotin free immunoperoxidase method. Appropriate controls are performed and reacted as expected. Results on target cell population are indicated in the following table: RESULTS: ANTIBODY / CLONE RESULT H Pylori (polyclonal) negative These tests were developed and their performance characteristics determined by [facility]. They may not have been cleared or approved by the U.S. Food and Drug Administration. The FDA has determined that such clearance or approval is not necessary. INTERPRETATION: Antral biopsy: Negative for Helicobacter pylori organisms. AM:irish 08/15/19
== END ==
PROVIDERS: PCP Internal Medicine; Referring Provider Internal Medicine Gastroenterology; Visit Provider Internal Medicine Gastroenterology
DX: R19.5 Other fecal abnormalities (principal)
CPT/HCPCS: 88305; 88342

== ENCOUNTER 2020-02-19 01:44 | Emergency (ER) | payer OTHER, SELFPAY ==
[2020-02-19 01:46] VITALS: BP 146/85; PULSE 81; RESP 20; TEMP 37.1; O2SAT 100; BMI 23.3
--- NOTE | 2020-02-19 01:52 | RAD_ITS ---
STUDY: X-RAY - RIGHT HAND, ATTENTION THUMB REASON FOR EXAM: Male, 54 years old. Puncture wound to the right thumb TECHNIQUE: 3 view(s) of the finger were obtained. COMPARISON: None. FINDINGS: Normal metacarpal head. Minimal degenerative change of the first metacarpophalangeal and first carpometacarpal joints. Normal proximal phalanx. Normal middle phalanx. Normal distal phalanx. Normal proximal interphalangeal joint. Normal distal interphalangeal joint. No soft tissue foreign body. RAD/Finger(s) Min 2 Views IMPRESSION: No acute abnormality of the right thumb. Electronically Signed: James Mirza MD at 2:15 EDT Tel , Service support ,
--- NOTE | 2020-02-19 01:53 | ED.VIS.UPPEX ---
History of Present Illness Chief Complaint: Foreign Body Informant: Patient Occurred: Today Mechanism/Context: - - suspects got a splinter or a sting in thumb while pulling weeds Onset: Hours - several Context: Gradual Onset Timing: Continuous Quality of Pain: Burning Location: right thumb Current Severity: Severe Maximum Severity: Severe Worsened by: palpation Relieved by: leaving alone Associated Symptoms: - - chills. Negative for: Parasthesia, Weakness, Loss of Funtion Narrative: Patient states he was pulling weeds, does not remember feeling anything all of a sudden, but thinks he got a splinter, and then gradually later the pain started to become more and more severe. Does not recall seeing an insect, caterpillar, or anything else obvious that could have stung or bitten him. Tetanus Immunization: <5 years - Past Medical History (1) Acute pulmonary embolus Status: Resolved Past Medical History - Allergies and Home Meds Allergies/Adverse Reactions: Allergies No Known Allergies Allergy (Verified 02/19/20 01:46) Primary Care Physician: Giovanni Case MD [Primary Care Provider] - Lives: Spouse/ Significant Other Smoking Status: Never smoker - Family History Maternal Family History: Reports: Cancer - Mother of breast cancer with metastases to the bone Paternal Family History: Reports: COPD Review of Systems General: Reports: Chills. Denies: Fever, Sweats Eyes: Denies: Visual changes - bilaterally, Diplopia ENT: Denies: Rhinorrhea, Sore throat Cardiovascular: Denies: Chest pain, Palpitations Respiratory: Denies: Dyspnea, Cough, Dyspnea on exertion Gastrointestinal: Denies: Abdominal pain, Nausea, Vomiting, Diarrhea, Melena, Hematochezia Genitourinary: Denies: Dysuria, Hematuria, Frequency Musculoskeletal: Reports: Extremity Pain - Left thumb only. Denies: Back pain, Swelling Skin: Reports: Wounds. Denies: Rash Neurological: Denies: Headache, Weakness, Numbness Physical Exam General: Well nourished, Well developed, - - Tremulous, no distress Head: Normocephalic, Atraumatic Eyes: Perrl, EOMI ENT: No Trauma, Moist Mucous Membranes Neck: Nontender, Full ROM Respiratory: No distress Extremeties: Right thumb pad is tender. Limited range of motion due to pain. No lymphangitis or other signs of infection. No other areas of injury evident. Skin: Normal color, No rash, Trauma - Single pinpoint-sized wound at the pad of the right thumb without any surrounding erythema, discharge, or rash/other lesion. The entire pad is tender, mildly swollen, and mildly pallorous at the tip and pad. No paronychia, nail is normal. No double bite altamirano to suggest venomous spider bite. Neurological: Alert, Oriented x3, Cranial nerves II-XII grossly intact, Normal Strength, Normal Sensation Psychological: Normal Mood, - - Mildly anxious Diagnostic/Tx/Re-eval Clinical Impression(s) from Imaging Studies Finger X-Ray 02/19/20 01:52 IMPRESSION: No acute abnormality of the right thumb. Electronically Signed: James Mirza MD at 2:15 EDT Tel , Service support , - Medical Decision Making I performed a digital block and the patient, with several touchups, patient still had throbbing pain in his thumb even though it was partially. I performed this partially to control symptoms, but also in preparation for the possibility of drainage of felon which is what I think is going on here. On reexamination of the patient after 1.5 hours of ED stay time, he has a little more pallor at the tip of the thumb including the pad, and it is a little more swollen. I do not think this is any type of unusual insect sting/envenomation, I think it is most likely a splinter that relatively quickly turned into a felon. I do not see a residual foreign body however I do not have adequate magnification available here. I discussed with orthopedics Dr. Lance, who does not do hand. Attempted to contact Dr. Benitez with plastics who is the only practitioner in the area who does, he was not available and did not respond. Therefore I think the best course is to transfer the patient for definitive care. Oftentimes these get admitted to the hospital, and since we cannot admit him for this here, and he will need to be transferred to a place that has hand surgery, I would prefer to have them do the drainage as well since I do very few of those. I discussed all this with the patient and and they are in agreement with that plan and prefer to take him up by private vehicle which I am fine with. I do not think that the transport time and the delay that it causes will make a significant difference in the outcome of his thumb. He has seen Dr. Engel at [facility] before for a tendon surgery on the same hand, so will transfer him to [facility] for hand evaluation. Accepted there by Dr. Segovia with ortho after discussing via transfer center. ED Disposition - Plan for ED Patient: Disposition: [facility] Diagnosis: Felon of finger of right hand Referrals: Giovanni Case MD [Primary Care Provider] -
[2020-02-19] MEDS: DiphenhydrAMINE 25 MG Capsule 50 MG PO (02:05)
[2020-02-19] MEDS: Naproxen 500 MG Tablet PO (02:06)
[2020-02-19] MEDS: Ondansetron ODT 4 MG Tablet 8 MG PO (02:31)
[2020-02-19] MEDS: Bupivacaine Mpf 0.5% 30 ML VIAL INFILT (02:32)
[2020-02-19 04:08] VITALS: BP 132/61; PULSE 76; RESP 18; TEMP 36.8; O2SAT 96
[2020-02-19] MEDS: oxyCODONE 5 MG Tablet PO (04:29)
[2020-02-19 04:35] VITALS: BP 134/61; PULSE 76; RESP 18; TEMP 36.8; O2SAT 96
== END 2020-02-19 04:38 | disposition short-term general hospital (02) ==
PROVIDERS: Emergency Provider Emergency Medicine; PCP Internal Medicine
DX: L03.011 Cellulitis of right finger (principal); Z86.711 Personal history of pulmonary embolism
CPT/HCPCS: 73140; 99284

== ENCOUNTER 2020-03-06 15:31 | Emergency (ER) | payer OTHER, SELFPAY ==
[2020-03-06] VITALS (7 sets, daily range): BP systolic 99–126; BP diastolic 57–71; PULSE 80–93; RESP 15–20; TEMP 37.7–39.1; O2SAT 93–99; BMI 23.3
--- NOTE | 2020-03-06 15:37 | EKG12_ITS ---
Test Reason : GENILLNESS Blood Pressure : / mmHG Vent. Rate : 092 BPM Atrial Rate : 092 BPM P-R Int : 144 ms QRS Dur : 088 ms QT Int : 372 ms P-R-T Axes : 058 038 035 degrees QTc Int : 460 ms Normal sinus rhythm Normal ECG Confirmed by JAMARI HALL, LAURIE ([id number]), legal editor ALIYA CHAVEZ ([id number]) on 03/07/2020 11:36:13 A M Referred By: DR STEARNS Confirmed By:MICHAEL KAUFFMAN MD
[2020-03-06] MEDS: 0.9% Normal Saline 1,000 ML 999 ML IV (15:43)
[2020-03-06] MEDS: Acetaminophen 500 MG Tablet 1000 MG PO (15:45)
--- NOTE | 2020-03-06 15:56 | ED.VISSUMM ---
- ER Visit Summary Date of Service: 03/06/20 Chief Complaint: Fever, chills, right thumb pain History of Present Illness: The patient is a 54 M who has a fever and chills. On February 18 he was here at this emergency department. He was working in his garden and felt like he had something stuck in his thumb. He subsequently was transferred to [facility] for hand surgery. 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 He had a revision surgery this past Tuesday. When he left [facility] his white blood cell count was 4.3 with 13 bands. His blood cultures were negative but the wound grew out strep pyogenes. Today he developed fever and chills. His temperature was 102 ?F at home. He is currently getting 2 g of ceftriaxone daily at home through a left upper extremity PICC line. He did have a coronavirus test this past Tuesday that was negative. Physical Examination: Vital signs are reviewed. Temperature is 102.4 ?F. Heart rate 93. HEENT exam unremarkable. Heart is slightly tachycardic and regular rhythm without murmurs. Lungs are clear. Abdomen soft. The right extremity shows a right thumb distal amputation with sutures in place. There is some erythema of the entire thumb. However, there is no purulent drainage. He is minimally tender in this area. The left upper extremity PICC line is unremarkable without erythema or drainage. His GCS is 15. He has equal strength and sensation bilaterally. Test Results: White blood cell count is 4 with a left shift. Potassium 3.2. ALT is 137, AST 134. Lactate 3.4 Emergency Department Course and Treatment: The patient's laboratory studies are consistent with severe sepsis with tachycardia, elevated temperature and elevated lactate. I did give the patient a dose of IV vancomycin in case this is an issue with his PICC line. He already had ceftriaxone today. I discussed with [facility], ICU physician, Dr. Kearney, the patient will be transferred. Treatment Plan: [] Disposition: Transfer Impression: Severe sepsis, right thumb wound Critical care time 31 minutes This note was generated with [employer] software. It may contain incorrect words, spelling, and punctuation that were not noted in review of the chart prior to signing ED Disposition - Plan for ED Patient: Referrals: Giovanni Case MD [Primary Care Provider] -
[2020-03-06 15:58] LABS: Absolute Lymphocyte Count 0.27 X10^3/uL (0.83-4.51); Absolute Neutrophil Count 3.5 X10^3/uL (2.0-7.7); Eosinophil# 0.01 X10^3/uL; Eosinophils% 0.3 % (0-5); Hemoglobin 10.7 g/dL (13.0-16.5); Lymphocyte # 0.27 X10^3/ul (4.0); Lymphocyte % 6.8 % (19-41); Mean Corp Hgb Conc 33.4 g/dL (32-36); Mean Corpuscular Hgb 29.9 pg (27.0-32.0); Mean Corpuscular Volume 89.4 fL (80-94); Mean Platelet Vol. 9.7 fl (6.2-12.0); Monocyte# 0.11 X10^3/uL; Monocyte% 2.8 % (0-10); NRBC Flagged by Analyzer 0 % (0-5); Neutrophil # 3.54 X10^3/uL (2.7-7.7); Neutrophil % 89.1 % (47-70); POSITIVE DIFFERENTIAL YES; Platelet Count 165 K/mm3 (150-450); RBC Distribution Width CV 12.5 % (11.6-14.6); RBC Distribution Width SD 41.3 fl (35.1-43.9); Red Blood Count 3.58 M/mm3 (4.6-6.2)
[2020-03-06 16:03] LABS: Differential Indicated SCAN CRITERIA MET
[2020-03-06 16:08] LABS: International Normalized Ratio 1.1; Partial Thromboplast Time 25.5 Seconds (24.1-36.2); Prothrombin Time (Protime)PT. 14.1 SECONDS (11.7-14.9)
[2020-03-06 16:16] LABS: ALB/GLOB Ratio 0.7 RATIO (0.9-2.4); AST(SGOT) 134 U/L (15-37); Alanine Aminotransfer ALT/SGPT 137 U/L (16-61); Albumin, Serum 2.5 g/dL (3.2-5.0); Alkaline Phosphatase 41 U/L (45-117); Anion Gap 7 (5-15); BUN 16 mg/dL (7-18); BUN/Creat Ratio 13.7 RATIO (10-20); Calcium,Total 7.5 mg/dL (8.5-10.1); Chloride 111 mmol/L (98-107); Creatinine, Serum 1.17 mg/dL (0.70-1.30); EST Glomerular Filtration Rate 68 mL/min (>60); Est Glom Filt Rate - Afr Amer 83 mL/min (>60); Estimated Creatinine Clearance 79.67 ml/min; Globulin 3.6 g/dL (2.2-4.2); Glucose 91 mg/dL (74-106); Potassium 3.2 mmol/L (3.5-5.1); Protein, Total 6.1 g/dL (6.4-8.2); Sodium Level 143 mmol/L (136-145)
[2020-03-06 16:24] LABS: Differential Comment SCANNED
[2020-03-06 16:25] LABS: Lactic Acid 3.4 mmol/L (0.4-1.9)
--- NOTE | 2020-03-06 17:08 | RAD_ITS ---
STUDY: X-RAY CHEST REASON FOR EXAM: Male, 54 years old. GENERAL ILLNESS TECHNIQUE: Single AP portable view of the chest. COMPARISON: Previous study of 05/07/2019 FINDINGS: telemetry monitor leads are seen. There is a left-sided PICC line with tip projecting over the atriocaval junction. There is an ill-defined infiltrate or atelectasis at the right lung base. There is a small calcified granuloma of the left upper lobe. There is no demonstrated pleural abnormality. Normal size heart. Normal mediastinum and chad. Normal visualized pulmonary arteries. There are calcified plaques of the aortic arch. Normal visualized thoracic spine. Normal visualized ribs, clavicles, and shoulders. There is no demonstrated abnormality of the visualized soft tissue structures of the upper abdomen. RAD/Chest 1 View (Portable) IMPRESSION: Ill-defined infiltrate and/or atelectasis of the right lung base. Left-sided PIC line with tip projecting over the atriocaval junction. Calcified plaques of the aortic arch. Electronically Signed: Rashel Ferris MD at 17:53 EDT , Service support ,
--- NOTE | 2020-03-06 17:18 | ED.RN ---
CALLED PHARMACY FOR ATIgor.
[2020-03-06] MEDS: Vancomycin IV 1,000 MG/200 ML BAG 200 MG IV (17:39)
--- NOTE | 2020-03-06 17:58 | ED.RN ---
PER ANTONIA REQUESTING A COVID TEST BEFORE PROCEEDING WITH TRANSFER. REPORTED TO DR STEARNS AND TEETEE RT
[2020-03-06 19:00] LABS: Probe Check PASS; Specimen Processing Control PASS
[2020-03-06] MEDS: Ibuprofen 600 MG Tablet PO (19:33)
[2020-03-06 19:50] LABS: Reflex Lactate? Y
[2020-03-07 13:53] LABS: Pathologist Review Reviewed
== END 2020-03-06 21:04 | disposition short-term general hospital (02) ==
LOC: ED 16:33
PROVIDERS: Emergency Provider Emergency Medicine; PCP Internal Medicine
DX: A41.9 Sepsis, unspecified organism (principal); R65.20 Severe sepsis without septic shock
CPT/HCPCS: 71045; 80053; 83605; 85025; 85610; 85730; 87040; 87635; 93005; 94799; 96361; 96365; 96366; 99285; J7030; A4216; U0003